=== PATIENT | male | born 1970 | race African-American/Black ===

== ENCOUNTER 2018-12-02 11:01 | Emergency (ER) | payer OTHER ==
[~2018-12-02] VITALS: Ht 188 cm; Wt 122.6 kg
[2018-12-02 11:03] VITALS: BP 129/78; PULSE 92; RESP 18; Ht 188 cm; Wt 122.6 kg
--- NOTE | 2018-12-02 12:12 | ERD ---
ER Documentation Chief Complaint Chief Complaint CRAMPING EPIGASTRIC PAIN & DIARRHEA X4 DAYS HPI The patient is a 48-year-old male, presenting to the ER because of epigastric abdominal pain and diarrhea after eating at a [id number] 4 days ago. He denies fever, chills, neck pain, chest pain, dyspnea. The abdominal pain locali zed to the epigastric area, denies vomiting, dysuria. He denies similar symptoms previously. There is no aggravating/relieving factors. He does not smoke nor drink Past medical history: None Past surgical history: Appendectomy ROS All systems reviewed and are negative except as per history of present illness. Medications Home Meds Active Scripts Tramadol HCl (Tramadol HCl) 50 Mg Tablet, 50 MG PO Q6 PRN for PAIN, #10 TAB Prov:RAMY MCCORMICK MD 12/02/18 Loperamide Hcl* (Imodium*) 2 Mg Capsule, 2 MG PO .AFTER EA LOOSE BM PRN for DIARRHEA, #10 TAB Prov:RAMY MCCORMICK MD 12/02/18 Pantoprazole* (Protonix*) 40 Mg Tablet.dr, 40 MG PO DAILY, #10 TAB Prov:RAMY MCCORMICK MD 12/02/18 Allergies Allergies: Coded Allergies: No Known Allergy (Unverified , 12/02/18) Physical Exam Vitals Vital Signs Date Temp Pulse Resp B/P (MAP) Pulse Ox O2 O2 Flow FiO2 Time Delivery Rate 12/02/18 97.1 92 18 129/78 98 11:03 (95) Physical Exam Const: No acute distress. Head: Atraumatic. Eyes: Normal Conjunctiva. ENT: Normal External Ears, Nose and Mouth. Neck: Full range of motion. No meningismus. Resp: Clear to auscultation bilaterally. Cardio: Regular rate and rhythm. Abd: Soft, non distended, normal bowel sounds, mild epigastric tenderness, no rigidity/rebound/CVA tenderness Skin: No petechiae or rashes. Back: No midline or flank tenderness. Ext: No cyanosis, or edema. Neur: Awake and alert. No focal deficit Psych: Normal Mood and Affect. Result Diagram: 12/02/18 1228 12/02/18 1228 Results 24 hrs Laboratory Tests Test 12/02/18 12:28 12/02/18 14:00 White Blood Count 6.4 10^3/ul Red Blood Count 5.39 10^6/ul Hemoglobin 14.9 g/dl Hematocrit 45.9 % Mean Corpuscular Volume 85.2 fl Mean Corpuscular Hemoglobin 27.6 pg Mean Corpuscular Hemoglobin Concent 32.5 g/dl Red Cell Distribution Width 14.0 % Platelet Count 234 10^3/UL Mean Platelet Volume 9.1 fl Immature Granulocytes % 0.300 % Neutrophils % 66.5 % Lymphocytes % 21.8 % Monocytes % 8.9 % Eosinophils % 2.2 % Basophils % 0.3 % Nucleated Red Blood Cells % 0.0 /100WBC Immature Granulocytes # 0.020 10^3/ul Neutrophils # 4.3 10^3/ul Lymphocytes # 1.4 10^3/ul Monocytes # 0.6 10^3/ul Eosinophils # 0.1 10^3/ul Basophils # 0.0 10^3/ul Nucleated Red Blood Cells # 0.0 10^3/ul Sodium Level 141 mmol/L Potassium Level 4.4 mmol/L Chloride Level 107 mmol/L Carbon Dioxide Level 29 mmol/L Anion Gap 5 Blood Urea Nitrogen 18 mg/dl Creatinine 1.47 mg/dl Est Glomerular Filtrat Rate mL/min 52 mL/min Glucose Level 90 mg/dl Calcium Level 9.1 mg/dl Total Bilirubin 0.5 mg/dl Direct Bilirubin 0.00 mg/dl Indirect Bilirubin 0.5 mg/dl Aspartate Amino Transf (AST/SGOT) 28 IU/L Alanine Aminotransferase (ALT/SGPT) 35 IU/L Alkaline Phosphatase 78 IU/L Total Protein 7.0 g/dl Albumin 4.0 g/dl Globulin 3.00 g/dl Albumin/Globulin Ratio 1.33 Lipase 99 U/L Bedside Urine pH (LAB) 5.5 Bedside Urine Protein (LAB) 1+ Bedside Urine Glucose (UA) Negative Bedside Urine Ketones (LAB) Negative Bedside Urine Blood Negative Bedside Urine Nitrite (LAB) Negative Bedside Urine Leukocyte Esterase (L Negative Current Medications Medications Dose Sig/Charles Start Time Status Last (Trade) Ordered Route PRN Stop Time Admin Dose Reason Admin 40 mg ONCE ONCE 12/02/18 DC 12/02/18 Pantoprazole IV 12:30 12:39 (Protonix 12/02/18 12:31 Iv) Ketorolac 30 mg ONCE STAT 12/02/18 DC 12/02/18 Tromethamine IV 12:18 12:40 (Toradol) 12/02/18 12:21 Loperamide 4 mg ONCE ONCE 12/02/18 DC 12/02/18 HCl PO 12:30 12:45 (Imodium Cap) 12/02/18 12:31 40 ml ONCE ONCE 12/02/18 DC 12/02/18 Miscellaneous PO 13:30 13:38 Medication 12/02/18 13:31 (Gi Cocktail (2)) Procedures/[place] [id number] Radiology Main Line: [phone] DIAGNOSTIC IMAGING REPORT Patient: SATISH KRAUSE : 1970 Age: 48 Sex: M MR #: [id number] DOS: 12/02/18 1218 Ordering MD: RAMY MCCORMICK MD Location: [facility] Room/Bed: PROCEDURE: US Abdomen. CLINICAL INDICATION: abdominal pain TECHNIQUE: Multiple real-time images were acquired of the patient's right upper quadrant abdomen and retroperitoneum utilizing a high resolution transducer. COMPARISON: None FINDINGS: The liver demonstrates normal echogenicity. The liver is normal in size and no focal solid lesions are seen. The liver measures 15.3 cm in length. The portal vein is patent with normal direction of flow. No intrahepatic biliary dilatation is seen. No gallstones are identified within the gallbladder. There is no p ericholecystic fluid or gallbladder wall thickening. The common bile duct measures 4.5 mm in maximal dimension. The pancreas is not well seen due to overlying bowel gas. No free fluid is identified. The right kidney is normal in size, and demonstrate normal echogenicity and cortical thickness. The right kidney measures 10.9 cm in long dimension. There is no evidence of hydronephrosis. There are no kidney stones. RPTAT: AA IMPRESSION: Unremarkable right upper quadrant abdominal ultrasound. .Brad Gayle MD, Date Time Electronically viewed and signed by .Brad Gayle MD, MD on 12/02/2018 13:57 .S/ CC: RAMY MCCORMICK MD [phone] MEDICAL MAKING DECISION: The patient is a 48-year-old male, presenting with epigastric abdominal pain and diarrhea, concerning for acute food poisoning. He was treated with Protonix 40 mg IV for epigastric abdominal pain, Toradol 30 mg IV for pain and Imodium 4 mg p.o. for diarrhea and GI cocktail for epigastric discomfort with good response, is stable for present follow-up The differential diagnoses considered include but are not limited to cholelithiasis, cholecystitis, choledocholithiasis, cholangitis, pancreatitis, hepatitis, gastritis, peptic ulcer disease, gastric ulcer, appendicitis, cy stitis, diverticulitis, partial small bowel obstruction. Departure Diagnosis: Primary Impression: Epigastric pain Additional Impression: Diarrhea Condition: Good Comments He was discharged with Protonix, Imodium, tramadol I discussed the findings with the patient. I advised the patient to follow-up with the primary physician in about 1-2 days, sooner if needed and return if any concern. Disclaimer: Inadvertent spelling and grammatical errors are likely due to EHR/d ictation software use and do not reflect on the overall quality of patient care. Also, please note that the electronic time recorded on this note does not necessarily reflect the actual time of the patient encounter. RAMY MCCORMICK MD December 02, 2018 12:12
[2018-12-02] MEDS ORDERED: KETOROLAC 30 MG INJ IV STA (12:18)
[2018-12-02] MEDS ORDERED: PANTOPRAZOLE 40 MG INJ IV ONE (12:30)
[2018-12-02] MEDS ORDERED: LOPERAMIDE 2 MG CAP PO ONE (12:30)
[2018-12-02] MEDS ORDERED: LIDOCAINE/MYLANTA 40 ML BTL PO ONE (13:30)
[2018-12-02] MEDS ORDERED: PANT40TA3 PO (14:14)
[2018-12-02] MEDS ORDERED: LOPE2CAP PO (14:14)
[2018-12-02] MEDS ORDERED: TRAM50TA2 PO (14:42)
== END 2018-12-02 14:50 | disposition home or self-care (01) ==
LOC: FTE 11:01
DX: R10.13 Epigastric pain (principal); R19.7 Diarrhea, unspecified
CPT/HCPCS: 36415; 76705; 80053; 81003; 83690; 85025; 96374; 96375; 99285; C9113; J1885